=== PATIENT | female | born 1950 | race Caucasian/White ===

== ENCOUNTER 2019-05-04 08:26 | Outpatient (CLI) | payer MEDICARE, SELFPAY ==
--- NOTE | 2019-05-04 08:52 | DI.RAD_ITS ---
EXAM: XR HAND LT COMPLETE INDICATION: LT THUMB PAIN, M79.645. TECHNIQUE: 2D digital imaging was performed. 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 There is no evidence of a fracture or dislocation.
--- NOTE | 2019-05-04 08:53 | DI.RAD_ITS ---
EXAM: XR HAND RT COMPLETE INDICATION: RT THUMB PAIN, M79.644. COMPARISON: XR HAND LT COMPLETE from 05/04/2019 TECHNIQUE: 2D digital imaging was performed. FINDINGS: There is no evidence of a fracture or dislocation. Severe degenerative changes involving the 1st meta carpal multangular and inter multangular joints are demonstrated.
== END 2019-05-04 08:46 ==
PROVIDERS: PCP Physician Assistant; Visit Provider Physician Assistant
DX: M79.644 Pain in right finger(s) (principal); M19.041 Primary osteoarthritis, right hand; M79.645 Pain in left finger(s); M19.042 Primary osteoarthritis, left hand
CPT/HCPCS: 73130